=== PATIENT | female | born 1980 | race Caucasian/White ===

== ENCOUNTER 2016-10-28 06:03 | Emergency (ER) | payer BC ==
[2016-10-28] MEDS ORDERED: PROTONIX 40 MG IV IV ONE ×2 (06:45→06:57)
[2016-10-28] MEDS ORDERED: Sodium Chloride 0.9% 1000 ML 1,000 ML IV SCH (06:45)
[2016-10-28] MEDS ORDERED: Zofran 4 MG/2 ML VIAL IV ONE (06:45)
[2016-10-28] MEDS ORDERED: Sodium Chloride 0.9% 1000 ML 1,000 ML ONE (06:57)
[2016-10-28] MEDS ORDERED: Zofran 4 MG/2 ML VIAL ONE (06:57)
--- NOTE | 2016-10-28 06:58 | ERPHSYRPT ---
- History of Present Illness Historian: patient Exam Limitations: clinical condition Patient Subjective Stated Complaint: pt states she woke up with epigastric pain about 0400. Triage Nursing Assessment: pt alert and oriented, asnwers questions approp. pt ambultory with steady gait noted. respirations nonlabored with lungs cta. skin pink, cool, moist. pt restless in bed. abd soft, slight tenderness noted in epigastric area. Timing/Duration: today Quality: sharpness Abdominal Pain Onset Location: RUQ, epigastric Pain Radiation: no radiation Severity of Pain-Max: moderate Severity of Pain-Current: moderate Modifying Factors: Improves With: nothing Associated Symptoms: denies symptoms Previous symptoms: same symptoms as today Hx Tetanus, Diphtheria Vaccination/Date Given: No Hx Influenza Vaccination/Date Given: No Hx Pneumococcal Vaccination/Date Given: No Immunizations Up to Date: No <LEI JACOBO - Last Filed: 10/28/16 06:52> <LEI PAREKH - Last Filed: 10/28/16 09:18> - History of Present Illness Time Seen by Provider: 10/28/16 06:40 Physician History: PATIENT AWAKENS AT 4AM WITH SEVERE EPIGASTRIC PAIN, CONSTANT, NONRADIATING. DENIES NAUSEA, EMESIS, DIARRHEA, OR FEVER. HAD SIMILAR EPISODE YEARS AGO. ( LEI JACOBO) Allergies/Adverse Reactions: No Known Drug Allergies Allergy (Unverified 10/28/16 06:29) Home Medications: No Home Meds 1 [facility] UD 10/28/16 [History] - Review of Systems Constitutional: No Fever, No Chills Eyes: No Symptoms Ears, Nose, & Throat: No Symptoms Respiratory: No Symptoms, No Cough, No Dyspnea Cardiac: No Symptoms, No Chest Pain, No Edema, No Syncope Abdominal/Gastrointestinal: Abdominal Pain, No Nausea, No Vomiting, No Diarrhea Genitourinary Symptoms: No Symptoms, No Dysuria Musculoskeletal: No Symptoms, No Back Pain, No Neck Pain Skin: No Symptoms, No Rash Neurological: No Dizziness, No Focal Weakness, No Sensory Changes Psychological: No Symptoms Endocrine: No Symptoms All Other Systems: Reviewed and Negative <LEI JACOBO - Last Filed: 10/28/16 06:52> - Past Medical History Pertinent Past Medical History: No - Past Surgical History Past Surgical History: No - Social History Smoking Status: Former smoker Exposure to second hand smoke: No Drug Use: none Patient Lives Alone: No - Female History Hx Last Menstrual Period: iud <LEI JACOBO - Last Filed: 10/28/16 06:52> - Physical Exam General Appearance: no apparent distress, alert Eye Exam: PERRL/EOMI, eyes nml inspection Ears, Nose, Throat Exam: normal ENT inspection, pharynx normal, moist mucous membranes Neck Exam: normal inspection, non-tender, supple, full range of motion Respiratory Exam: normal breath sounds, lungs clear, No respiratory distress Cardiovascular Exam: regular rate/rhythm, normal heart sounds Gastrointestinal/Abdomen Exam: soft, normal bowel sounds, tenderness (MODERATE EPIGASTRIC AND RIGHT UPPER QUADRANT TENDERNESS, WITHOUT GUARDING), No mass Back Exam: normal inspection, normal range of motion, No CVA tenderness, No vertebral tenderness Extremity Exam: normal inspection, normal range of motion, pelvis stable Neurologic Exam: alert, oriented x 3, cooperative, normal mood/affect, nml cerebellar function, sensation nml, No motor deficits Skin Exam: normal color, warm, dry SpO2: 99 Oxygen Delivery: Room Air <VIVILEI - Last Filed: 10/28/16 06:52> - CT Exams abd/pelvis CT Interpretation: Tele-radiologist Report ([place]) <IGLESIAITZEL - Last Filed: 10/28/16 09:18> Ordered Tests: Active Orders 24 hr Category Date Time Status Clean Catch Urine Specimen STAT Care 10/28/16 06:45 Active EKG-ER Only STAT Care 10/28/16 07:05 Active IV Insertion STAT Care 10/28/16 06:45 Active ABDOMEN AND PELVIS W CONTRAST [CT] Stat Exams 10/28/16 06:50 Completed GALLBLADDER [US] Stat Exams 10/28/16 07:57 Completed AMYLASE Stat Lab 10/28/16 06:48 Completed BLOOD CULTURE Stat Lab 10/28/16 07:05 Received CBC W DIFF Stat Lab 10/28/16 06:48 Completed CMP Stat Lab 10/28/16 06:48 Completed CULTURE,URINE Stat Lab 10/28/16 06:48 Received HCG,QUALITATIVE URINE Stat Lab 10/28/16 06:48 Completed LIPASE Stat Lab 10/28/16 06:48 Completed UA W/ MICROSCOPIC Stat Lab 10/28/16 06:48 Completed Medication Summary Generic Name Dose Route Start Last Admin Trade Name Freq PRN Reason Stop Dose Admin Sodium Chloride 1,000 mls @ 250 mls/hr 10/28/16 06:45 10/28/16 07:01 Sodium Chloride 0.9% 1000 Ml IV 11/27/16 06:44 250 mls/hr .Q4H MARIA E Administration Discontinued Medications Generic Name Dose Route Start Last Admin Trade Name Freq PRN Reason Stop Dose Admin Diphenhydramine HCl 25 mg 10/28/16 08:46 10/28/16 09:03 Benadryl 50 Mg/Ml IV 10/28/16 08:47 25 mg STAT ONE Administration Diphenhydramine HCl Confirm 10/28/16 09:02 Benadryl 50 Mg/Ml Administered 10/28/16 09:03 Dose 50 mg .ROUTE .STK-MED ONE Fentanyl Citrate 100 mcg 10/28/16 07:50 10/28/16 07:52 Sublimaze 100 Mcg/2 Ml IV 10/28/16 07:51 100 mcg STAT ONE Administration Fentanyl Citrate Confirm 10/28/16 07:51 Sublimaze 100 Mcg/2 Ml Administered 10/28/16 07:52 Dose 100 mcg .ROUTE .STK-MED ONE Hydromorphone HCl 1 mg 10/28/16 08:46 10/28/16 09:03 Hydromorphone 1 Mg/Ml Ampule IV 10/28/16 08:47 1 mg STAT ONE Administration Hydromorphone HCl Confirm 10/28/16 09:02 Hydromorphone 1 Mg/Ml Ampule Administered 10/28/16 09:03 Dose 1 mg .ROUTE .STK-MED ONE Ondansetron HCl 4 mg 10/28/16 06:45 10/28/16 07:01 Zofran 4 Mg/2 Ml Vial IV 10/28/16 06:46 4 mg STAT ONE Administration Ondansetron HCl Confirm 10/28/16 06:57 Zofran 4 Mg/2 Ml Vial Administered 10/28/16 06:58 Dose 4 mg .ROUTE .STK-MED ONE Pantoprazole Sodium 40 mg 10/28/16 06:45 10/28/16 07:02 Protonix 40 Mg Iv IV 10/28/16 06:46 40 mg STAT ONE Administration Pantoprazole Sodium Confirm 10/28/16 06:57 Protonix 40 Mg Iv Administered 10/28/16 06:58 Dose 40 mg IV .STK-MED ONE Lab/Rad Data: Laboratory Result Diagrams 10/28/16 06:48 10/28/16 06:48 Laboratory Results 10/28/16 10/28/16 10/28/16 Range/Units 06:48 06:48 06:48 WBC (4.0-10.5) K/mm3 RBC (4.1-5.4) M/mm3 Hgb (12.0-16.0) gm/dl Hct (35-47) % MCV (78-100) fl MCH (26-32) pg MCHC (32-36) g/dl RDW (11.5-14.0) % Plt Count (150-450) K/mm3 MPV (6-9.5) fl Gran % (36.0-66.0) % Lymphocytes % (24.0-44.0) % Monocytes % (0.0-12.0) % Eosinophils % (0.00-5.0) % Basophils % (0.0-0.4) % Basophils # (0-0.4) Sodium 138 (136-145) mEq/L Potassium 3.6 (3.5-5.1) mEq/L Chloride 102 (98-107) mEq/L Carbon Dioxide 27.9 (21-32) mEq/L Anion Gap 11.9 (5-15) MEQ/L BUN 10 (9-20) mg/dL Creatinine 0.88 (0.55-1.30) mg/dl Estimated GFR > 60 ML/MIN Glucose 136 H (70-110) MG/DL Calcium 9.1 (8.5-10.1) mg/dL Total Bilirubin 0.40 (0.2-1.0) mg/dL AST 18 (15-37) U/L ALT 29 (12-78) U/L Alkaline Phosphatase 89 (46-116) U/L Serum Total Protein 7.5 (6.4-8.2) gm/dL Albumin 3.8 (3.4-5.0) g/dL Amylase 13 L (25-115) U/L Lipase 88 (73-393) U/L Ur Collection Type VOID Urine Color YELLOW (YELLOW) Urine Appearance CLEAR (CLEAR) Urine pH 5.0 (5-6) Ur Specific [place] 1.030 (1.005-1.025) Urine Protein TRACE (Negative) Urine Ketones NEGATIVE (NEGATIVE) Urine Blood NEGATIVE (0-5) Kyaw/ul Urine Nitrite NEGATIVE (NEGATIVE) Urine Bilirubin NEGATIVE (NEGATIVE) Urine Urobilinogen NORMAL (0-1) mg/dL Ur Leukocyte Esterase 1+ (NEGATIVE) Urine Microscopic WBC 5-10 (0-5) /HPF Ur Epithelial Cells FEW (FEW) /HPF Urine Bacteria FEW (NEGATIVE) /HPF Urine Mucus MODERATE (NEGATIVE) /HPF Urine Glucose NEGATIVE (NEGATIVE) mg/dL Urine HCG, Qual NEGATIVE (Negative) Specimen Received 10/28/16 0705 10/28/16 Range/Units 06:48 WBC 11.8 H (4.0-10.5) K/mm3 RBC 4.71 (4.1-5.4) M/mm3 Hgb 14.3 (12.0-16.0) gm/dl Hct 43.3 (35-47) % MCV 91.9 (78-100) fl MCH 30.4 (26-32) pg MCHC 33.0 (32-36) g/dl RDW 12.6 (11.5-14.0) % Plt Count 273 (150-450) K/mm3 MPV 11.3 H (6-9.5) fl Gran % 79.6 H (36.0-66.0) % Lymphocytes % 14.4 L (24.0-44.0) % Monocytes % 5.3 (0.0-12.0) % Eosinophils % 0.5 (0.00-5.0) % Basophils % 0.2 (0.0-0.4) % Basophils # 0.02 (0-0.4) Sodium (136-145) mEq/L Potassium (3.5-5.1) mEq/L Chloride (98-107) mEq/L Carbon Dioxide (21-32) mEq/L Anion Gap (5-15) MEQ/L BUN (9-20) mg/dL Creatinine (0.55-1.30) mg/dl Estimated GFR ML/MIN Glucose (70-110) MG/DL Calcium (8.5-10.1) mg/dL Total Bilirubin (0.2-1.0) mg/dL AST (15-37) U/L ALT (12-78) U/L Alkaline Phosphatase (46-116) U/L Serum Total Protein (6.4-8.2) gm/dL Albumin (3.4-5.0) g/dL Amylase (25-115) U/L Lipase (73-393) U/L Ur Collection Type Urine Color (YELLOW) Urine Appearance (CLEAR) Urine pH (5-6) Ur Specific [place] (1.005-1.025) Urine Protein (Negative) Urine Ketones (NEGATIVE) Urine Blood (0-5) Kyaw/ul Urine Nitrite (NEGATIVE) Urine Bilirubin (NEGATIVE) Urine Urobilinogen (0-1) mg/dL Ur Leukocyte Esterase (NEGATIVE) Urine Microscopic WBC (0-5) /HPF Ur Epithelial Cells (FEW) /HPF Urine Bacteria (NEGATIVE) /HPF Urine Mucus (NEGATIVE) /HPF Urine Glucose (NEGATIVE) mg/dL Urine HCG, Qual (Negative) Specimen Received <LEI JACOBO - Last Filed: 10/28/16 06:52> - Progress Counseled pt/family regarding: lab results, diagnosis, need for follow-up, rad results <LEI PAREKH - Last Filed: 10/28/16 09:18> - Progress Progress Note: 10/28/16 06:58 PATIENT GIVEN IV FLUIDS NORMAL SALINE 250ML/HR. PATIENT CARE ENDORSED TO DR PAREKH AT 0700 FOR DISPOSITION (LEI JACOBO) 10/28/16 09:14 Pt was initially seen per Dr Jacobo. She has RUQ. Pt of Dr Real. LAbs reassuring. Mild RUQ tender. She has gallstones without evidence of cholecystitis. Pain treated. Advised surgical followup. Discussed bland diet. (LEI PAREKH) <LEI JACOBO - Last Filed: 10/28/16 06:52> - Departure Time of Disposition: 09:15 Departure Disposition: Home Critical Care Time: No <LEI PAREKH - Last Filed: 10/28/16 09:18> - Departure Clinical Impression: Gallstones, Biliary colic Condition: Stable Referrals: SERGIO REAL MD [Primary Care Provider] - Instructions: Abdominal Pain-Adult, [place] Diet, Gallstones Additional Instructions: Arrange close follow up with general surgeon. [place] diet. No driving today or while taking norco. Rx norco. Prescriptions: Hydrocodone Bit/Acetaminophen [[place] 5-325 Tablet] 1 each PO Q6H PRN PRN #15 tablet PRN Reason: Pain
[2016-10-28 07:13] LABS: BASOPHIL % 0.2 % (0.0-0.4); Eosinophil % 0.5 % (0.00-5.0); Granulocytes % 79.6 % (36.0-66.0); Lymphocytes % 14.4 % (24.0-44.0); Mean Cell Volume 91.9 fl (78-100); Mean Corpuscular Hemoglobin 30.4 pg (26-32); Mean Platelet Volume 11.3 fl (6-9.5); Monocytes % 5.3 % (0.0-12.0); Platelet Count 273 K/mm3 (150-450); Red Blood Count 4.71 M/mm3 (4.1-5.4); Red Cell Distribution Width 12.6 % (11.5-14.0); White Blood Count 11.8 K/mm3 (4.0-10.5)
[2016-10-28 07:20] LABS: Bilirubin NEGATIVE (NEGATIVE); Blood NEGATIVE Ery/ul (0-5); COMPLETE URINE MICROSCOPIC? YES; Collection Type VOID; Glucose NEGATIVE (NEGATIVE); Leukocyte Esterase 1+ (NEGATIVE); Mucus MODERATE /HPF (NEGATIVE)
[2016-10-28 07:21] LABS: ADD URINE CULTURE? YES (NO); Bacteria FEW /HPF (NEGATIVE); Epithelial Cells FEW /HPF (FEW)
[2016-10-28 07:34] LABS: ALBUMIN 3.8 g/dL (3.4-5.0); ALKALINE PHOSPHATASE 89 U/L (46-116); ANION GAP 11.9 MEQ/L (5-15); BLOOD UREA NITROGEN 10 mg/dL (9-20); CHLORIDE 102 mEq/L (98-107); Carbon Dioxide 27.9 mEq/L (21-32); Glucose 136 MG/DL (70-110); LIPASE 88 U/L (73-393); Potassium 3.6 mEq/L (3.5-5.1); SGOT/AST 18 U/L (15-37); SGPT/ALT 29 U/L (12-78); SODIUM 138 mEq/L (136-145); Total Protein 7.5 gm/dL (6.4-8.2)
[2016-10-28] MEDS ORDERED: SUBLIMAZE 100 MCG/2 ML IV ONE (07:50)
[2016-10-28] MEDS ORDERED: SUBLIMAZE 100 MCG/2 ML ONE (07:51)
--- NOTE | 2016-10-28 08:26 | XRAY ---
Indication: Epigastric pain. Multiple contiguous axial images obtained through the abdomen and pelvis using 80 cc Isovue 370 contrast. Comparison: None Lung bases demonstrates right base calcified granuloma. No infiltrate, consolidation, or effusion. Heart is not enlarged. Noncontrasted stomach and bowel loops appear nonobstructed. Normal appendix. No free fluid/air. Gallbladder moderately distended with 13 mm gallstone near the neck. No pericholecystic fluid or biliary distention. There is a IUD in situ. Remaining liver, pancreas, spleen, adrenal glands, kidneys, ureters, bladder, and aorta appear unremarkable. No pathologic retroperitoneal lymphadenopathy. Osseous structures intact with mild lower lumbar degenerative changes. Impression: 1. Moderately distended gallbladder with 13 mm gallstone. 2. Remaining CT abdomen/pelvis with contrast exam is negative. CT DI 23.68
[2016-10-28] MEDS ORDERED: Hydromorphone 1 mg/ml Ampule IV ONE (08:46)
[2016-10-28] MEDS ORDERED: BENADRYL 50 MG/ML IV ONE (08:46)
[2016-10-28] MEDS ORDERED: Hydromorphone 1 mg/ml Ampule ONE (09:02)
[2016-10-28] MEDS ORDERED: BENADRYL 50 MG/ML ONE (09:02)
--- NOTE | 2016-10-28 09:08 | XRAY ---
Indication: Right upper quadrant pain. Two-dimensional right upper quadrant abdominal sonogram performed. Comparison: None [employer] notes difficult exam due to body habitus. 13 mm gallstone in the neck of the gallbladder. No gallbladder wall thickening or pericholecystic fluid. Common bile duct measures 6.3 mm. No intrahepatic biliary distention. Remaining visualized portions of the liver, pancreas, and right kidney appear sonographically unremarkable. Right kidney measures 12 cm in length. No ascites. Impression: 13 mm gallstone in the neck of the gallbladder without acute cholecystitis or biliary distention.
[2016-10-28 09:32] VITALS: BP 108/70; PULSE 66; O2SAT 97
== END 2016-10-28 09:55 | disposition home or self-care (01) ==
LOC: ED 06:03
DX: K80.80 Other cholelithiasis without obstruction (principal); K80.50 Calculus of bile duct without cholangitis or cholecystitis without obstruction
CPT/HCPCS: 36000; 36415; 74177; 76705; 80053; 81000; 82150; 83690; 84703; 85025; 87040; 87086; 93005; 96360; 96361; 96374; 96375; 99284; J1170; J1200; J2405; J3010

== ENCOUNTER 2018-03-21 08:59 | Emergency (ER) | payer BC ==
[2018-03-21] MEDS ORDERED: Sodium Chloride 0.9% 1000 ML 1,000 ML IV STA (09:16)
[2018-03-21] MEDS ORDERED: TORAdol 30 mg Injection IV ONE (09:16)
[2018-03-21] MEDS ORDERED: Zofran 4 MG/2 ML VIAL IV ONE (09:16)
--- NOTE | 2018-03-21 09:20 | ERPHSYRPT ---
- History of Present Illness Time Seen by Provider: 03/21/18 09:13 Historian: patient Exam Limitations: no limitations Patient Subjective Stated Complaint: Pt states "I am having severe stomach pain. It started in my back and now it is my lower right side." Triage Nursing Assessment: Pt alert and oriented X 3, skin pwd. PT ambulates with a hunched over gait. pt moaning, unable to stand up straight. Physician History: 37-year-old white female arrives with complaint of right lower quadrant right side pain symptoms since 7:00 this morning is described as both dull and sharp. States she has had some dysuria. Positive nausea no vomiting no diarrhea no melena no hematochezia. Past medical history negative. Past surgical history includes cholecystectomy, gastric bypass. Social history occasional alcohol. Patient is on the Mirena. Timing/Duration: today (7 AM) Activities at Onset: none Quality: dullness, sharpness Abdominal Pain Onset Location: RLQ, flank (right flank) Pain Radiation: RLQ Severity of Pain-Max: moderate Severity of Pain-Current: moderate Modifying Factors: Improves With: nothing Associated Symptoms: back (right flank pain earlier), nausea, No chest pain, No diaphoresis, No diarrhea, No fever/chills, No fatigue, No headache, No heartburn , No loss of appetite, No neck pain, No rash, No shortness of breath, No syncope , No vomiting, No weakness Previous symptoms: no prior history Allergies/Adverse Reactions: No Known Drug Allergies Allergy (Verified 03/21/18 09:11) Home Medications: No Home Meds [No Home Meds] 1 [facility] UD 10/28/16 [History] Hx Tetanus, Diphtheria Vaccination/Date Given: No Hx Influenza Vaccination/Date Given: No Hx Pneumococcal Vaccination/Date Given: No Immunizations Up to Date: Yes - Review of Systems Constitutional: No Fever, No Chills Eyes: No Symptoms Ears, Nose, & Throat: No Symptoms Respiratory: No Cough, No Dyspnea Cardiac: No Chest Pain, No Edema, No Syncope Abdominal/Gastrointestinal: Abdominal Pain, Nausea, No Vomiting, No Diarrhea, No Constipation, No Hematemesis, No Hematochezia, No Melena, No Dysphagia, No Appetite Changes Genitourinary Symptoms: Dysuria, No Frequency, No Hematuria, No Hesitancy, No Incontinence, No Urgency, No Urinary Retention, No Flank Pain, No Menorrhagia, No , No Vaginal Bleeding, No Vaginal Discharge, No Vaginal Itching Musculoskeletal: Back Pain (right flank pain), No Arthralgias, No Neck Pain, No Deformity, No Fall, No Injury, No Joint Redness, No Joint Pain, No Joint Swelling, No Myalgias Skin: No Rash Neurological: No Dizziness, No Focal Weakness, No Sensory Changes Psychological: No Symptoms Endocrine: No Symptoms All Other Systems: Reviewed and Negative - Past Medical History Pertinent Past Medical History: No - Past Surgical History Past Surgical History: Yes Other Surgical History: pradeep. gastric bypass - Social History Smoking Status: Former smoker Exposure to second hand smoke: No Drug Use: none Patient Lives Alone: No - Female History Hx Last Menstrual Period: mirena Hx Now: No - Nursing Vital Signs Nursing Vital Signs: Initial Vital Signs Temperature 97.7 F 03/21/18 09:05 Pulse Rate 65 03/21/18 09:05 Respiratory Rate 18 03/21/18 09:05 Blood Pressure 112/64 03/21/18 09:05 O2 Sat by Pulse Oximetry 99 03/21/18 09:05 Pain Scale Pain Intensity 2 - Physical Exam General Appearance: moderate distress, alert Eye Exam: PERRL/EOMI, eyes nml inspection Ears, Nose, Throat Exam: normal ENT inspection, pharynx normal, moist mucous membranes Neck Exam: normal inspection, non-tender, supple, full range of motion Respiratory Exam: normal breath sounds, lungs clear, No respiratory distress Cardiovascular Exam: regular rate/rhythm, normal heart sounds Gastrointestinal/Abdomen Exam: soft, No tenderness, No mass Back Exam: normal inspection, normal range of motion, No CVA tenderness, No vertebral tenderness Extremity Exam: normal inspection, normal range of motion, pelvis stable Neurologic Exam: alert, oriented x 3, cooperative, creative guru II-XII nml as tested, normal mood/affect, nml cerebellar function, sensation nml, No motor deficits Skin Exam: normal color, warm, dry SpO2 Interpretation: normal (99%) SpO2: 99 Oxygen Delivery: Room Air - Course Nursing assessment & vital signs reviewed: Yes - CT Exams Abdomen/Pelvis CT Interpretation: Tele-radiologist Report (CT abdomen and pelvis: She impression: 1. Right ureteral vesicle junction, tiny 2 mm obstructing stone, resulting in mild hydronephrosis must not. 2. There has been interval gastric bypass surgery resulting in significant reduction of abdominal fat.) Ordered Tests: Active Orders 24 hr Category Date Time Status IV Insertion STAT Care 03/21/18 09:16 Active ABDOMEN AND PELVIS W/0 CONTRAS [CT] Stat Exams 03/21/18 09:56 Taken AMYLASE Stat Lab 03/21/18 09:36 Completed CBC W DIFF Stat Lab 03/21/18 09:36 Completed CMP Stat Lab 03/21/18 09:36 Completed CULTURE,URINE Stat Lab 03/21/18 10:45 Received HCG QUALITATIVE,SERUM Stat Lab 03/21/18 09:36 Completed LIPASE Stat Lab 03/21/18 09:36 Completed UA W/RFX UR CULTURE Stat Lab 03/21/18 10:45 Completed Medication Summary Discontinued Medications Generic Name Dose Route Start Last Admin Trade Name Freq PRN Reason Stop Dose Admin Sodium Chloride 1,000 mls @ 999 mls/hr 03/21/18 09:16 12 11:45 Sodium Chloride 0.9% 1000 Ml IV 03/21/18 10:16 Infused .Q1H1M STA Infusion Sodium Chloride Confirm 03/21/18 09:22 Sodium Chloride 0.9% 1000 Ml Administered 03/21/18 09:23 Dose 1,000 mls @ ud .ROUTE .STK-MED ONE Ketorolac Tromethamine 30 mg 03/21/18 09:16 03/21/18 09:24 Toradol 30 Mg Injection IV 03/21/18 09:17 30 mg STAT ONE Administration Ketorolac Tromethamine Confirm 03/21/18 09:22 Toradol 30 Mg Injection Administered 03/21/18 09:23 Dose 30 mg .ROUTE .STK-MED ONE Morphine Sulfate 4 mg 03/21/18 10:25 03/21/18 10:32 Morphine Sulfate 4 Mg Inj IV 03/21/18 10:26 4 mg STAT ONE Administration Morphine Sulfate Confirm 03/21/18 10:26 Morphine Sulfate 4 Mg Inj Administered 03/21/18 10:27 Dose 4 mg .ROUTE .STK-MED ONE Ondansetron HCl 4 mg 03/21/18 09:16 03/21/18 09:25 Zofran 4 Mg/2 Ml Vial IV 03/21/18 09:17 4 mg STAT ONE Administration Ondansetron HCl Confirm 03/21/18 09:22 Zofran 4 Mg/2 Ml Vial Administered 03/21/18 09:23 Dose 4 mg .ROUTE .STK-MED ONE Lab/Rad Data: Laboratory Result Diagrams 03/21/18 09:36 03/21/18 09:36 Laboratory Results 03/21/18 03/21/18 03/21/18 Range/Units 10:45 09:36 09:36 WBC (4.0-10.5) K/mm3 RBC (4.1-5.4) M/mm3 Hgb (12.0-16.0) gm/dl Hct (35-47) % MCV (78-100) fl MCH (26-32) pg MCHC (32-36) g/dl RDW (11.5-14.0) % Plt Count (150-450) K/mm3 MPV (6-9.5) fl Gran % (36.0-66.0) % Eos # (Auto) (0-0.5) Absolute Lymphs (auto) (1.0-4.6) Absolute Monos (auto) (0.0-1.3) Lymphocytes % (24.0-44.0) % Monocytes % (0.0-12.0) % Eosinophils % (0.00-5.0) % Basophils % (0.0-0.4) % Absolute Granulocytes (1.4-6.9) Basophils # (0-0.4) Sodium 140 (137-145) mmol/L Potassium 3.2 L (3.5-5.1) mmol/L Chloride 110 H (98-107) mmol/L Carbon Dioxide 21 L (22-30) mmol/L Anion Gap 11.4 (5-15) MEQ/L BUN 8 (7-17) mg/dL Creatinine 0.61 (0.52-1.04) mg/dL Estimated GFR > 60.0 ML/MIN Glucose 114 H (74-106) mg/dL Calcium 8.9 (8.4-10.2) mg/dL Total Bilirubin 0.50 (0.2-1.3) mg/dL AST 25 (14-36) U/L ALT 20 (0-35) U/L Alkaline Phosphatase 84 (38-126) U/L Serum Total Protein 6.4 (6.3-8.2) g/dL Albumin 4.0 (3.5-5.0) g/dL Amylase < 30 L (30-110) U/L Lipase 31 (23-300) U/L Serum , Qual NEGATIVE (Negative) Urine Color YELLOW (YELLOW) Urine Appearance SLIGHTLY CLOUDY (CLEAR) Urine pH 5.0 (5-6) Ur Specific [place] 1.018 (1.005-1.025) Urine Protein NEGATIVE (Negative) Urine Ketones SMALL (NEGATIVE) Urine Blood SMALL (0-5) Kyaw/ul Urine Nitrite NEGATIVE (NEGATIVE) Urine Bilirubin NEGATIVE (NEGATIVE) Urine Urobilinogen NEGATIVE (0-1) mg/dL Ur Leukocyte Esterase NEGATIVE (NEGATIVE) Urine WBC (Auto) 16-25 (0-5) /HPF Urine RBC (Auto) 6-10 (0-2) /HPF U Hyaline Cast (Auto) 0-2 (0-2) /LPF U Epithel Cells (Auto) RARE (FEW) /HPF Urine Bacteria (Auto) FEW (NEGATIVE) /HPF Calcium Oxalate Crystal 11-25 (NEGATIVE) /HPF Urine Mucus (Auto) SLIGHT (NEGATIVE) /HPF Urine Culture Reflexed YES (NO) Urine Glucose NEGATIVE (NEGATIVE) mg/dL 18 Range/Units 09:36 WBC 7.8 (4.0-10.5) K/mm3 RBC 3.99 L (4.1-5.4) M/mm3 Hgb 12.2 (12.0-16.0) gm/dl Hct 36.8 (35-47) % MCV 92.2 (78-100) fl MCH 30.5 (26-32) pg MCHC 33.2 (32-36) g/dl RDW 12.8 (11.5-14.0) % Plt Count 186 (150-450) K/mm3 MPV 11.7 H (6-9.5) fl Gran % 82.1 H (36.0-66.0) % Eos # (Auto) 0.02 (0-0.5) Absolute Lymphs (auto) 0.91 L (1.0-4.6) Absolute Monos (auto) 0.45 (0.0-1.3) Lymphocytes % 11.7 L (24.0-44.0) % Monocytes % 5.8 (0.0-12.0) % Eosinophils % 0.3 (0.00-5.0) % Basophils % 0.1 (0.0-0.4) % Absolute Granulocytes 6.37 (1.4-6.9) Basophils # 0.01 (0-0.4) Sodium (137-145) mmol/L Potassium (3.5-5.1) mmol/L Chloride (98-107) mmol/L Carbon Dioxide (22-30) mmol/L Anion Gap (5-15) MEQ/L BUN (7-17) mg/dL Creatinine (0.52-1.04) mg/dL Estimated GFR ML/MIN Glucose (74-106) mg/dL Calcium (8.4-10.2) mg/dL Total Bilirubin (0.2-1.3) mg/dL AST (14-36) U/L ALT (0-35) U/L Alkaline Phosphatase (38-126) U/L Serum Total Protein (6.3-8.2) g/dL Albumin (3.5-5.0) g/dL Amylase (30-110) U/L Lipase (23-300) U/L Serum , Qual (Negative) Urine Color (YELLOW) Urine Appearance (CLEAR) Urine pH (5-6) Ur Specific [place] (1.005-1.025) Urine Protein (Negative) Urine Ketones (NEGATIVE) Urine Blood (0-5) Kyaw/ul Urine Nitrite (NEGATIVE) Urine Bilirubin (NEGATIVE) Urine Urobilinogen (0-1) mg/dL Ur Leukocyte Esterase (NEGATIVE) Urine WBC (Auto) (0-5) /HPF Urine RBC (Auto) (0-2) /HPF U Hyaline Cast (Auto) (0-2) /LPF U Epithel Cells (Auto) (FEW) /HPF Urine Bacteria (Auto) (NEGATIVE) /HPF Calcium Oxalate Crystal (NEGATIVE) /HPF Urine Mucus (Auto) (NEGATIVE) /HPF Urine Culture Reflexed (NO) Urine Glucose (NEGATIVE) mg/dL - Progress Progress: improved Progress Note: 03/21/18 11:40 Patient feeling much better after 1 L of saline,. Morphine, and Toradol. CT shows a right ureteral vesicular junction tiny 2 mm obstructing stone with mild hydronephrosis. Plan to place patient on [place] for pain, patient does have positive white cells 25 and 6-[address] patient on Bactrim and [place]. Patient plenty of fluids, strain her urine, and follow-up with Dr. Haywood. - Departure Time of Disposition: 11:43 Departure Disposition: Home Clinical Impression: Abdominal pain Qualifiers: Abdominal location: right lower quadrant Qualified Code(s): R10.31 - Right lower quadrant pain Urolithiasis Qualifiers: Urinary calculus location: ureter Qualified Code(s): N20.1 - Calculus of ureter UTI (urinary tract infection) Qualifiers: Urinary tract infection type: site unspecified Hematuria presence: with hematuria Qualified Code(s): N39.0 - Urinary tract infection, site not specified Condition: Fair Critical Care Time: No Referrals: SERGIO HAYWOOD MD [Primary Care Provider] - Additional Instructions: Return home. Plenty of fluids. Strain all urine. [place] as prescribed. Bactrim as prescribed. Follow-up with your family doctor. Return for acute distress or for severe symptoms. . Prescriptions: Hydrocodone/Acetaminophen [[place] 5-325 Tablet] 1 tab PO Q4-6HPRN PRN #12 tablet MDD 6 tablets PRN Reason: Pain Smz/Tmp Ds Tablet [Bactrim Ds Tablet] 1 tab PO BID #20 tablet
[2018-03-21] MEDS ORDERED: Zofran 4 MG/2 ML VIAL ONE (09:22)
[2018-03-21] MEDS ORDERED: TORAdol 30 mg Injection ONE (09:22)
[2018-03-21] MEDS ORDERED: Sodium Chloride 0.9% 1000 ML 1,000 ML ONE (09:22)
[2018-03-21 09:42] LABS: BASOPHIL % 0.1 % (0.0-0.4); Basophil (Absolute #) 0.01 (0-0.4); Eosinophil % 0.3 % (0.00-5.0); Eosinophil (Absolute #) 0.02 (0-0.5); Granulocyte Absolute (ANC) 6.37 (1.4-6.9); Granulocytes % 82.1 % (36.0-66.0); Hematocrit 36.8 % (35-47); Hemoglobin 12.2 gm/dl (12.0-16.0); Lymphocyte (Absolute #) 0.91 (1.0-4.6); Lymphocytes % 11.7 % (24.0-44.0); Mean Cell Volume 92.2 fl (78-100); Mean Corpuscular Hgb Concent. 33.2 g/dl (32-36); Mean Platelet Volume 11.7 fl (6-9.5); Monocyte (Absolute #) 0.45 (0.0-1.3); Monocytes % 5.8 % (0.0-12.0); Platelet Count 186 K/mm3 (150-450); Red Blood Count 3.99 M/mm3 (4.1-5.4); Red Cell Distribution Width 12.8 % (11.5-14.0); White Blood Count 7.8 K/mm3 (4.0-10.5)
[2018-03-21 09:53] LABS: Mean Corpuscular Hemoglobin 30.5 pg (26-32)
[2018-03-21 09:54] LABS: ALKALINE PHOSPHATASE 84 U/L (38-126); AMYLASE < 30 U/L (30-110); ANION GAP 11.4 MEQ/L (5-15); BLOOD UREA NITROGEN 8 mg/dL (7-17); CHLORIDE 110 mmol/L (98-107); Calcium 8.9 mg/dL (8.4-10.2); Carbon Dioxide 21 mmol/L (22-30); Creatinine 1 0.61 mg/dL (0.52-1.04); Glucose 114 mg/dL (74-106); LIPASE 31 U/L (23-300); Potassium 3.2 mmol/L (3.5-5.1); SGOT/AST 25 U/L (14-36); SGPT/ALT 20 U/L (0-35); SODIUM 140 mmol/L (137-145); Total Protein 6.4 g/dL (6.3-8.2)
[2018-03-21] MEDS ORDERED: MORPHINE SULFATE 4 MG INJ IV ONE (10:25)
[2018-03-21] MEDS ORDERED: MORPHINE SULFATE 4 MG INJ ONE (10:26)
[2018-03-21 11:15] LABS: Appearance SLIGHTLY CLOUDY (CLEAR); Bilirubin NEGATIVE (NEGATIVE); Blood SMALL Ery/ul (0-5); Glucose NEGATIVE (NEGATIVE); Ketones SMALL (NEGATIVE); Leukocyte Esterase NEGATIVE (NEGATIVE); Nitrite NEGATIVE (NEGATIVE); Protein,Urine Dip NEGATIVE (Negative); Specific Gravity 1.018 (1.005-1.025); Urobilinogen NEGATIVE mg/dL (0-1)
[2018-03-21 11:52] VITALS: BP 120/73; PULSE 68; O2SAT 98
--- NOTE | 2018-03-21 19:56 | XRAY ---
Indication: Right lower quadrant pain. Multiple contiguous axial images obtained through the abdomen and pelvis without contrast as ordered. Comparison: October 28, 2016. Lung bases demonstrate stable right base calcified granuloma. No infiltrate or effusion. A few right infrahilar calcified nodes. Heart is not enlarged. There has been interval gastric bypass surgery and cholecystectomy. Noncontrasted stomach and bowel loops appear nonobstructed. Normal appendix. New 2 mm right UVJ calculus with mild right ureteral prominence and mild hydronephrosis consistent with partial obstructive uropathy. Tiny cul-de-sac fluid presumed physiologic from rupture/leaking cyst. Again IUD in situ. Remaining liver, pancreas, spleen, adrenal glands, kidneys, left ureter, bladder, and aorta appear unremarkable for noncontrast exam. Osseous structures intact again with lower lumbar degenerative changes. Impression: 1. New 2 mm right UVJ calculus producing partial obstruction. 2. Interval gastric bypass surgery and cholecystectomy without complications. 3. Tiny cul-de-sac fluid presumed physiologic. 4. Again evidence for old granulomatous disease. Comment: Preliminary interpretation was made by [facility]. No discrepancy. CTDI 23.68
== END 2018-03-21 12:08 | disposition home or self-care (01) ==
LOC: ED 08:59
DX: R10.31 Right lower quadrant pain (principal); N20.1 Calculus of ureter; N39.0 Urinary tract infection, site not specified
CPT/HCPCS: 36000; 36415; 74176; 80053; 81001; 81025; 82150; 83690; 85025; 87086; 96365; 96374; 99284; J1885; J2270; J2405